=== PATIENT | female | born 1965 ===

== ENCOUNTER 2016-11-18 06:28 | Inpatient (IN) | payer BC ==
[~2016-11-18] VITALS: Ht 142.2 cm; Wt 79.4 kg
[2016-11-18] VITALS (12 sets, daily range): BP systolic 121–139; BP diastolic 67–82
[2016-11-18] MEDS ORDERED: Ropivacaine 5mg/ml Vial 20ml INJ ONE (06:58)
[2016-11-18] MEDS ORDERED: cefOXitin Sod 2 GM in D5W 110 ML IVPB ONE (07:00)
[2016-11-18] MEDS ORDERED: cefOXitin 2gm Inj ONE (07:12)
[2016-11-18] MEDS ORDERED: VASCEPA1 GM PO (07:22)
[2016-11-18] MEDS ORDERED: VITAMIN D1000 UNI1 ORAL (07:22)
[2016-11-18] MEDS ORDERED: Dexamethasone 4mg/ml vial ONE (07:30)
[2016-11-18] MEDS ORDERED: Ketorolac 30mg Inj ONE (07:30)
[2016-11-18] MEDS ORDERED: Propofol 10mg/ml 20ml IV ONE (07:30)
[2016-11-18] MEDS ORDERED: LR 1000ml ONE (07:30)
[2016-11-18] MEDS ORDERED: Glycopyrrolate 0.2mg/ml 1ml Vial ONE (07:30)
[2016-11-18] MEDS ORDERED: Neostigmine 1mg/ml 10ml Inj ONE (07:30)
[2016-11-18] MEDS ORDERED: Zemuron 50mg/5ml Inj IV ONE ×2 (07:30→07:38)
[2016-11-18] MEDS ORDERED: Midazolam 2mg/2ml Inj ONE (07:30)
[2016-11-18] MEDS ORDERED: Sterile Water Irrig 1000ml IRRIG ONE (07:30)
[2016-11-18] MEDS ORDERED: NS Irrig 1000ml ONE (07:30)
[2016-11-18] MEDS ORDERED: fentaNYL 100 mcg/2 mL IV ONE (07:30)
[2016-11-18] MEDS ORDERED: Morphine Sulfate PF 10 ML ONE (07:32)
[2016-11-18] MEDS ORDERED: LR 1000ml 1,000 ML IVLG SCH (07:33)
--- NOTE | 2016-11-18 07:33 | Anethesia Preoperative Eval ---
Anesthesia Pre-op PMH/ROS General Date of Evaluation: Nov 18, 2016 Time of Evaluation: 07:20 Anesthesiologist: Hermann ASA Score: ASA 2 Mallampati Score Class I : Soft palate, uvula, fauces, pillars visible Class II: Soft palate, uvula, fauces visible Class III: Soft palate, base of uvula visible Class IV: Only hard plate visible Mallampati Classification: Class II Surgeon: Annamarie Diagnosis: uterine fibroids Surgical Procedure: HELEN/BSO Anesthesia History: none Family History: no anesthesia problems Allergies: Coded Allergies: No Known Allergies (Unverified , 07/08/16) Past Medical History Cardiovascular: Denies: CAD, HTN, PA, arrhythmia, other, valve dz Pulmonary: Denies: COPD, MARLEY, asthma, other Neurologic/Psychiatric: Denies: CVA, TIA, dementia, depression/anxiety, other Endocrine: Denies: DM, hypothyroidism, other, steroids HEENT: Denies: NINILCHIK (L), NINILCHIK (R), cataract (L), cataract (R), glaucoma, other Hematology/Immune: Denies: DVT, anemia, bleeding disorder, other Musculoskeletal/Integumentary: Denies: DDD, DJD, OA, RA, edema, other PMH Narrative: Hyperlipidemia PSxH Narrative: cholecystectomy Anesthesia Pre-op Phys. Exam Physician Exam Last Vital Signs Date Time Temp Pulse Resp B/P Pulse Ox O2 Delivery O2 Flow Rate FiO2 11/18/16 07:03 96.8 62 18 121/71 96 Room Air Constitutional: NAD Neurologic: CN 2-12 intact Cardiovascular: RRR Respiratory: CTA Gastrointestinal: S/NT/ND Airway Exam Mallampati Score: Class II MO: full ROM: full Teeth: intact Dentures: no lower, no upper Anesthesia Pre-op A/P Labs Urine Test Test 11/18/16 07:00 Urine HCG, Qualitative Negative KENDELL HUNT D.O. Nov 18, 2016 07:33
[2016-11-18] MEDS ORDERED: NS Irrig 1000ml IRRIG ONE (07:35)
[2016-11-18] MEDS ORDERED: fentaNYL 100 mcg/2 mL IV PRN (07:45)
--- NOTE | 2016-11-18 08:05 | Pre-Procedure Note/Attestation ---
Pre-Procedure Note/Attestation Complete Prior to Procedure Planned Procedure: bilateral Procedure Narrative: Total Abdominal Hysterectomy, Bilateral Salpingo-oophorectomy Indications for Procedure Pre-Operative Diagnosis: Very Large Symptomatic Uterine Fibroid Attestation I attest that I discussed the nature of the procedure; its benefits; risks and complications; and alternatives (and the risks and benefits of such alternatives ), prior to the procedure, with the patient (or the patient's legal dental detail representative). I attest that, if there was a reasonable possibility of needing a blood transfusion, the patient (or the patient's legal dental detail representative) was given the [facility] standardized written summary, pursuant to the [place] Blood Safety Act ([place] Health and Safety Code # 1645, as amended). I attest that I re-evaluated the patient just prior to the surgery and that there has been no change in the patient's H&P, except as documented below:NONE BLANCA DUMONT Nov 18, 2016 08:05
--- NOTE | 2016-11-18 10:01 | Brief Operative Note ---
Immediate Post Operative Note Operative Note Pre-op Diagnosis: Very Large Symptomatic Uterine Fibroid Post-op Diagnosis: same as pre-op Surgeon: Blanca Dumont MD Library Supervisor: Paty Briones MD Additional Surgeons: Dr. Antonio Anesthesia: general Specimen: yes Complications: none Condition: stable Estimated Blood Loss: volume - 100 ml Drains: none - Ivey Catheter Implant(s) used?: No BLANCA DUMONT Nov 18, 2016 10:01
--- NOTE | 2016-11-18 10:06 | Immediate Post-Op Evaluation ---
Immediate Post-Op Evalulation Immediate Post-Op Evalulation Procedure: HELEN/BSO Date of Evaluation: Nov 18, 2016 Time of Evaluation: 10:04 IV Fluids: 1700ml Blood Products: none Estimated Blood Loss: 100ml Urinary Output: 110ml Blood Pressure Systolic: 133 Blood Pressure Diastolic: 72 Pulse Rate: 80 Respiratory Rate: 16 O2 Sat by Pulse Oximetry: 98 Temperature (Fahrenheit): 98.2 Pain Score (1-10): 0 Nausea: No Vomiting: No Complications none Patient Status: awake, reacts Hydration Status: adequate Drug: cefoxitin 2gm Given Within 1 Hr of Incision: Yes Time Given: 08:15 KENDELL HUNT D.O. Nov 18, 2016 10:06
[2016-11-18] MEDS: Hydromorphone 0.5mg/0.5ml inj IVP PRN ×3 (10:14→11:00)
[2016-11-18] MEDS ORDERED: Ketorolac 30mg Inj IM PRN (12:01)
[2016-11-18] MEDS ORDERED: Norco 5mg/325mg tab ORAL PRN (12:01)
[2016-11-18] MEDS: D5 1/2NS w/KCl 20mEq 1,000 ML IV SCH ×3 (15:42→23:55)
--- NOTE | 2016-11-18 16:48 | Operative Note - Dictated ---
DATE OF OPERATION: 11/19/2015 PREOPERATIVE DIAGNOSIS: Very large uterine fibroid, symptomatic. POSTOPERATIVE DIAGNOSIS: Very large uterine fibroid, symptomatic. PROCEDURE PERFORMED: 1. Total abdominal hysterectomy. 2. Bilateral salpingo-oophorectomy. SURGEON: Geremias De Luna M.D. BIAS CUTTING MACHINE OPERATOR: Paty Briones M.D. PROCEDURE IN DETAIL: After all the appropriate consents were signed, the patient was brought to the operating room and placed on the table in supine position. The patient, however, was setup and a spinal Duramorph anesthesia was placed. The patient was then laid back in the supine position and a general anesthesia was induced without complication. At this time, the patient's abdomen was prepped and draped in the usual fashion. The patient was draped and a Ivey catheter was placed in the bladder. The procedure began with making a Pfannenstiel incision, which was carried through the subcutaneous tissue. The subcutaneous was carried through towards the fascia and the fascia was nicked. Fascial incision was extended bilaterally to expose the rectus muscle. The rectus muscle was then reflected both superiorly and inferiorly to expose the peritoneum. The peritoneum was entered sharply and a very large uterus was identified. The uterine fundus was palpated and extracted out of the pelvis. At this time, the round ligaments were identified and the procedure began with cutting the round ligaments and suture ligating them bilaterally. At this time, the anterior leaf of the broad ligament was incised and the bladder flap was developed. There were some adhesions along the bladder, which were taken down and the bladder flap was developed without complication. The procedure continued with answering the broad ligament bilaterally. The infundibulopelvic ligaments were clamped, cut, and suture ligated bilaterally. The uterine vessels were now identified. These were clamped bilaterally and transected and suture ligated. At this time, cardinal ligaments were clamped, cut, and suture ligated bilaterally two times. The uterus was now removed from the field after the cervix was from the uterus. The cervix was now grasped and dissection continued until the cardinal ligaments were completely cut and suture ligated. The uterosacral ligaments now were clamped bilaterally and transected to completely remove the cervix away from the vaginal cuff. Vaginal cuff was sutured using #0 Vicryl suture in a running fashion. At this time, all the pedicles were evaluated. There was a small bleeder at the vaginal cuff where a [id number] suture was placed. The procedure continued with irrigation of the pelvis. Suction was used to clean out the pelvis and the debri. The incision now was closed using 2-0 Vicryl suture at the peritoneal layer. Rectus muscle was approximated in the midline and the procedure was continuing with closing of the fascia. The fascia was closed bilaterally. The subcutaneous tissue was closed with plain 3-0 suture. Complete hemostasis was noted at the subcutaneous tissue and the incisions were closed with stainless steel jessiac. Dressings were placed and the patient was awakened from general anesthesia. She was transferred to the recovery room in excellent condition. Geremias De Luna M.D. DR: JOHN JOB#: [id number] CC: CHIRAG
[2016-11-18] MEDS: Norco 10mg/325mg tab ORAL PRN (21:37)
[2016-11-19] VITALS: BP 117/61
[2016-11-19 04:00] VITALS: BP 118/63
[2016-11-19] MEDS: D5 1/2NS w/KCl 20mEq 1,000 ML IV SCH ×3 (04:12→21:37)
[2016-11-19 07:26] LABS: BASOPHILS % (AUTO) 0.6 % (0.0-2.0); EOSINOPHILS % (AUTO) 0.2 % (0.0-3.0); MEAN CORPUSCULAR HEMOGLOBIN 23.7 PG (27.0-31.0); MEAN CORPUSCULAR HGB CONC 31.4 G/DL (32.0-36.0); MEAN CORPUSCULAR VOLUME 76 FL (80-99); MEAN PLATELET VOLUME 8.6 FL (6.5-10.1); MONOCYTES % (AUTO) 6.7 % (1.0-10.0); NEUTROPHILS % (AUTO) 73.5 % (45.0-75.0); PLATELET COUNT 251 K/UL (150-450); RED BLOOD COUNT 4.41 M/UL (4.20-5.40); WHITE BLOOD COUNT 9.8 K/UL (4.8-10.8)
[2016-11-19 07:59] LABS: ANION GAP 13 (5-15); CALCIUM 8.6 mg/dL (8.6-10.2); CARBON DIOXIDE 25 mEQ/L (20-30); CHLORIDE 103 mEQ/L (98-107); CREATININE 0.5 mg/dL (0.5-0.9); GLOMERULAR FILTRATION RATE > 60 mL/min (>60); HEMOLYSIS 13; MAGNESIUM 1.9 mg/dL (1.7-2.5); PHOSPHORUS 3.3 mg/dL (2.5-4.8); POTASSIUM 4.3 mEQ/L (3.4-4.9); SODIUM 141 mEQ/L (135-145)
[2016-11-19 08:45] VITALS: BP 125/76
--- NOTE | 2016-11-19 09:48 | 48 Hour Post Anesthesia Eval ---
Post Anesthesia Evaluation Procedure: HELEN/BSO Date of Evaluation: Nov 19, 2016 Time of Evaluation: 09:46 Blood Pressure Systolic: 126 0: 72 Pulse Rate: 68 Respiratory Rate: 20 Temperature (Fahrenheit): 97.6 O2 Sat by Pulse Oximetry: 98 Airway: patent Nausea: No Vomiting: No Pain Intensity: 2 Hydration Status: adequate Cardiopulmonary Status: stable Mental Status/LOC: patient returned to baseline Follow-up Care/Observations: n/a Post-Anesthesia Complications: none Follow-up care needed: N/A DAVID BERMUDEZ M.D. Nov 19, 2016 09:48
[2016-11-19] MEDS: Norco 10mg/325mg tab ORAL PRN ×2 (09:49→21:41)
[2016-11-19 11:24] LABS: IONIZED CALCIUM 1.13 mmol/L (1.10-1.35)
[2016-11-19 12:23] VITALS: BP 108/60
[2016-11-19] MEDS: Ketorolac 30mg Inj IM SCH ×2 (12:33→18:34)
[2016-11-19 16:47] VITALS: BP 102/60
[2016-11-19 20:00] VITALS: BP 103/62
[2016-11-20] VITALS: BP 97/56
[2016-11-20 04:06] VITALS: BP 98/62
[2016-11-20] MEDS: D5 1/2NS w/KCl 20mEq 1,000 ML IV SCH ×2 (05:36→12:56)
[2016-11-20] MEDS: Ketorolac 30mg Inj IM SCH ×3 (05:37→12:00)
[2016-11-20 08:00] VITALS: BP 102/62
--- NOTE | 2016-11-20 08:28 | Discharge Summary ---
Discharge Summary Hospital Course Date of Admission Nov 18, 2016 at 06:28 Date of Discharge 11/20/2016 Admitting Diagnosis Very Large Uterine Myoma, symptomatic HPI Breann Bradshaw is a 51 year old female who was admitted on Nov 18, 2016 at 06:28 for Uterine Fibroids Procedures HELEN, BSO Discharge Discharge Disposition Patient was discharged to Home Discharge Diagnoses: (1) Uterine myoma BLANCA DUMONT Nov 20, 2016 08:28
[2016-11-20 12:00] VITALS: BP 109/64
== END 2016-11-20 15:30 | disposition home or self-care (01) | DRG 743 ==
LOC: SDSOVERFLO 06:28 → 3E 11:06
PROC: 0UT97ZZ Resection of Uterus, Via Natural or Artificial Opening (ICD-10-PCS; principal; 2016-11-18 07:30)
PROC: 0UT77ZZ Resection of Bilateral Fallopian Tubes, Via Natural or Artificial Opening (ICD-10-PCS; principal; 2016-11-18 07:30)
PROC: 0UTC7ZZ Resection of Cervix, Via Natural or Artificial Opening (ICD-10-PCS; principal; 2016-11-18 07:30)
PROC: 0UT27ZZ Resection of Bilateral Ovaries, Via Natural or Artificial Opening (ICD-10-PCS; principal; 2016-11-18 07:30)
DX: D25.9 Leiomyoma of uterus, unspecified (principal)
CPT/HCPCS: 36415; 80048; 81025; 82330; 83735; 84100; 85025; 86850; 86900; 86901; 87081; 94003; 94150; J2250; J2405; J2710